=== PATIENT | male | born 1950 | race Caucasian/White ===

== ENCOUNTER 2017-07-17 14:40 | Emergency (ER) | payer BC ==
[~2017-07-17] VITALS: Ht 180.3 cm; Wt 119.8 kg
[2017-07-17] MEDS ORDERED: QUETIAPINE FUM100 MG PO (15:09)
[2017-07-17] MEDS ORDERED: COZAAR 25 MG TA25 M1 PO (15:10)
[2017-07-17] MEDS ORDERED: EFFEXOR 5050 MG/1 T1 PO (15:10)
[2017-07-17] MEDS ORDERED: FENOFIBRATE160 MG PO (15:10)
[2017-07-17] MEDS ORDERED: AMBIEN 5 MG TABL5 M1 PO (15:10)
[2017-07-17] MEDS ORDERED: PRIMIDONE50 MG PO (15:10)
[2017-07-17] MEDS ORDERED: LAMICTAL100 MG PO (15:11)
[2017-07-17] MEDS ORDERED: RISPERDAL M-TA0.5 MG PO (15:11)
[2017-07-17] MEDS ORDERED: ROBAXIN500 MG PO (16:13)
[2017-07-17 16:37] VITALS: BP 128/79
== END 2017-07-17 16:38 | disposition home or self-care (01) ==
LOC: M.ERS 14:40
DX: M54.16 Radiculopathy, lumbar region (principal); M25.551 Pain in right hip; I10 Essential (primary) hypertension; Z96.651 Presence of right artificial knee joint; Z85.46 Personal history of malignant neoplasm of prostate